=== PATIENT | male | born 1935 | race Caucasian/White ===

== ENCOUNTER → 2017-01-12 | Outpatient (REF) | payer MEDICARE, OTHER ==
[~2017-01-12] MED LIST: AC325T; ASPI325T4; ATOR20TA PO; AZIT250T81 PO; CHOL100048 PO; CITA20TA12 PO; CLOP75TA3 PO; INSU100I14 SQ; INSU100V32 SQ; ISOS30TA82 PO; LACT10SO5 PO; LAMO200T14 PO; LISI1TAB10 PO; LORA10CA PO; MAG; MULT-55 PO; POLY17PO2 PO; POTA10TA6; QUET400T PO; RISP0.5T16 PO; RIVA1PAT3; TAMS-8 PO
== END ==
LOC: LAB 10:46
PROVIDERS: ATTEND Family Medicine
DX: E11.9 Type 2 diabetes mellitus without complications (principal)
CPT/HCPCS: 83036